=== PATIENT | female | born 1930 | race Caucasian/White ===

== ENCOUNTER → 2016-04-24 09:12 | Outpatient (CLI) | payer MEDICARE | END | disposition home or self-care (01) | LOC: D.RAD 02-20 08:15 | DX: C34.90 Malignant neoplasm of unspecified part of unspecified bronchus or lung (principal) ==

== ENCOUNTER → 2016-09-03 08:13 | Outpatient (CLI) | payer MEDICARE | END | disposition home or self-care (01) | LOC: D.RAD 08:13 | DX: C34.12 Malignant neoplasm of upper lobe, left bronchus or lung (principal) ==

== ENCOUNTER 2016-11-08 13:25 | Emergency (ER) | payer MEDICARE ==
[2016-11-08 14:05] LABS: BASOPHILS 0.9 % (0-2); HEMATOCRIT 39.6 % (36.0-48.0); HEMOGLOBIN 12.4 g/dL (12-16); IMMATURE GRANULOCYTES 0.2 % (0-5); LYMPHOCYTES 27.2 % (15-50); MCH 28.2 pg (26.0-34.0); MCHC 31.3 g/dL (31.0-37.0); MEAN PLATELET VOLUME 9.9 fL (7.4-10.4); MONOCYTES 7.6 % (2-11); NEUTROPHILS 62.1 % (40-80); PLATELET COUNT 169 10x3/uL (130-400); RDW 13.4 % (11.5-14.5); WBC 5.6 10x3/uL (4.8-10.8)
[2016-11-08 14:20] LABS: ALBUMIN 3.2 g/dL (3.4-5.0); ANION GAP 8.1 mmol/L (8-16); BILIRUBIN - TOTAL 0.26 mg/dL (0.2-1.3); CALCIUM 8.1 mg/dL (8.5-10.1); CARBON DIOXIDE 31.6 mmol/L (21.0-32.0); CREATININE - SERUM 1.5 mg/dL (0.6-1.3); POTASSIUM - SERUM 3.7 mmol/L (3.5-5.1); PROTEIN - SERUM 6.4 g/dL (6.4-8.2)
== END 2016-11-08 16:31 | disposition home or self-care (01) ==
LOC: D.ER 13:25
PROVIDERS: Family Medicine
DX: G40.89 Other seizures (principal); R41.82 Altered mental status, unspecified; F41.9 Anxiety disorder, unspecified; C34.90 Malignant neoplasm of unspecified part of unspecified bronchus or lung; F03.90 Unspecified dementia, unspecified severity, without behavioral disturbance, psychotic disturbance, mood disturbance, and anxiety; I10 Essential (primary) hypertension

== ENCOUNTER 2017-04-01 13:29 | Inpatient (IN) | payer MEDICARE ==
[~2017-04-01] VITALS: Ht 160 cm; Wt 63.5 kg
[2017-04-01 13:54] VITALS: BP 109/68
[2017-04-01 15:03] LABS: BASOPHILS 0.2 % (0-2); EOSINOPHILS 0.1 % (0-7); HEMATOCRIT 40.5 % (36.0-48.0); HEMOGLOBIN 13.1 g/dL (12-16); IMMATURE GRANULOCYTES 0.3 % (0-5); LYMPHOCYTES 10.5 % (15-50); MCH 28.7 pg (26.0-34.0); MCHC 32.3 g/dL (31.0-37.0); MCV 88.8 fL (80.0-100.0); MONOCYTES 9.4 % (2-11); NEUTROPHILS 79.5 % (40-80); RBC 4.56 10x6/uL (4.00-5.40); RDW 13.2 % (11.5-14.5); WBC 9.6 10x3/uL (4.8-10.8)
[2017-04-01 15:08] LABS: PLATELET COUNT 261 10x3/uL (130-400)
[2017-04-01 15:17] LABS: ALBUMIN 3.1 g/dL (3.4-5.0); ANION GAP 10.4 mmol/L (8-16); BILIRUBIN - TOTAL 0.92 mg/dL (0.2-1.3); CALCIUM 8.8 mg/dL (8.5-10.1); CARBON DIOXIDE 28.8 mmol/L (21.0-32.0); CREATININE - SERUM 1.2 mg/dL (0.6-1.3); POTASSIUM - SERUM 3.2 mmol/L (3.5-5.1); PROTEIN - SERUM 6.8 g/dL (6.4-8.2)
[2017-04-01 16:00] VITALS: BP 98/58
[2017-04-01 16:29] VITALS: BP 116/74; BMI 24.8
[2017-04-01] MEDS ORDERED: CELEXA20 MG PO (18:08)
[2017-04-01] MEDS ORDERED: ARICEPT5 MG PO (18:08)
[2017-04-01] MEDS ORDERED: NEURONTIN600 MG PO (18:09)
[2017-04-01] MEDS ORDERED: VESICARE5 MG PO (18:10)
[2017-04-01] MEDS ORDERED: DESERYL100 MG PO (18:10)
[2017-04-01] MEDS ORDERED: ATIVAN1 MG PO (18:10)
[2017-04-01] MEDS ORDERED: SEROQUEL50 MG PO (18:11)
[2017-04-01] MEDS ORDERED: NAMENDA XR28 MG PO (18:11)
[2017-04-01 18:45] LABS: MAGNESIUM - SERUM 2.1 mg/dL (1.8-2.4); THYROID STIMULATING HORMONE 0.71 uIU/mL (0.36-3.74)
[2017-04-02 06:07] LABS: BASOPHILS 0.5 % (0-2); EOSINOPHILS 0.8 % (0-7); HEMATOCRIT 38.1 % (36.0-48.0); HEMOGLOBIN 12.4 g/dL (12-16); IMMATURE GRANULOCYTES 0.4 % (0-5); LYMPHOCYTES 12.1 % (15-50); MCH 28.9 pg (26.0-34.0); MCHC 32.5 g/dL (31.0-37.0); MCV 88.8 fL (80.0-100.0); MEAN PLATELET VOLUME 10.5 fL (7.4-10.4); MONOCYTES 11.6 % (2-11); NEUTROPHILS 74.6 % (40-80); PLATELET COUNT 228 10x3/uL (130-400); RBC 4.29 10x6/uL (4.00-5.40); RDW 13.4 % (11.5-14.5); WBC 7.5 10x3/uL (4.8-10.8)
[2017-04-02 06:38] LABS: APPEARANCE CLEAR (CLEAR); BILIRUBIN NEGATIVE (NEGATIVE); COLOR DK YELLOW (YELLOW); GLUCOSE NEGATIVE (NEGATIVE); KETONE NEGATIVE (NEGATIVE); NITRITE NEGATIVE (NEGATIVE); PROTEIN 1+ mg/dL (NEGATIVE); UROBILINOGEN NORMAL (NORMAL)
[2017-04-02 06:39] LABS: BACTERIA MODERATE /hpf (NONE SEEN); EPITHELIAL CELLS 0-5 /hpf (0-5); MUCUS >1+ /lpf (NONE SEEN); RED CELLS - URINE 0-5 /hpf (0-5); WHITE CELLS - URINE 0-5 /hpf (0-5)
[2017-04-02 08:20] VITALS: BP 128/77
[2017-04-02 12:26] VITALS: BP 119/85
[2017-04-02 13:39] VITALS: Ht 160 cm; Wt 63.5 kg
[2017-04-02 16:14] VITALS: BP 154/93
[2017-04-02 20:00] VITALS: BP 157/96
[2017-04-03 04:00] VITALS: BP 164/105
[2017-04-03 04:49] LABS: BASOPHILS 0.4 % (0-2); EOSINOPHILS 1.2 % (0-7); HEMATOCRIT 38.3 % (36.0-48.0); HEMOGLOBIN 12.3 g/dL (12-16); IMMATURE GRANULOCYTES 0.3 % (0-5); LYMPHOCYTES 13.7 % (15-50); MCH 28.3 pg (26.0-34.0); MCHC 32.1 g/dL (31.0-37.0); MCV 88.2 fL (80.0-100.0); MEAN PLATELET VOLUME 10.6 fL (7.4-10.4); MONOCYTES 7.6 % (2-11); NEUTROPHILS 76.8 % (40-80); PLATELET COUNT 257 10x3/uL (130-400); RBC 4.34 10x6/uL (4.00-5.40); RDW 12.9 % (11.5-14.5); WBC 6.9 10x3/uL (4.8-10.8)
[2017-04-03 08:36] VITALS: BP 151/88
[2017-04-03] MEDS ORDERED: ZITHROMAX250 MG PO (10:17)
[2017-04-03] MEDS ORDERED: MACROBID100 MG PO (10:17)
[2017-04-03] MEDS ORDERED: LISINOPRIL5 MG PO (10:18)
== END 2017-04-03 13:02 | disposition home or self-care (01) | DRG 689 ==
LOC: D.MS 13:29
PROVIDERS: Legal Medicine
DX: N39.0 Urinary tract infection, site not specified (principal); J18.9 Pneumonia, unspecified organism; C34.90 Malignant neoplasm of unspecified part of unspecified bronchus or lung; J90 Pleural effusion, not elsewhere classified; J98.11 Atelectasis; E86.0 Dehydration; F03.90 Unspecified dementia, unspecified severity, without behavioral disturbance, psychotic disturbance, mood disturbance, and anxiety; Z66 Do not resuscitate; S00.93XA Contusion of unspecified part of head, initial encounter

== ENCOUNTER → 2017-04-23 10:29 | Outpatient (CLI) | payer MEDICARE ==
[2017-04-02 13:39] VITALS: BMI 24.8
[~2017-04-23 10:29] MED LIST: ARICEPT5 MG PO; ATIVAN1 MG PO; CELEXA20 MG PO; DESERYL100 MG PO; LISINOPRIL5 MG PO; MACROBID100 MG PO; NAMENDA XR28 MG PO; NEURONTIN600 MG PO; SEROQUEL50 MG PO; VESICARE5 MG PO; ZITHROMAX250 MG PO
[2017-04-23 11:00] LABS: APPEARANCE CLEAR (CLEAR); COLOR DK YELLOW (YELLOW); NITRITE NEGATIVE (NEGATIVE); PROTEIN NEGATIVE (NEGATIVE)
[2017-04-23 11:01] LABS: BILIRUBIN NEGATIVE (NEGATIVE); GLUCOSE 50 mg/dL (NEGATIVE); KETONE LARGE mg/dL (NEGATIVE); UROBILINOGEN NORMAL (NORMAL)
== END | disposition home or self-care (01) ==
LOC: D.LABREF 10:29
PROVIDERS: Legal Medicine
DX: R30.0 Dysuria (principal); R41.3 Other amnesia